=== PATIENT | male | born 1970 | race Caucasian/White ===

== ENCOUNTER 2019-11-16 16:17 | Observation (INO) ==
[2019-11-16] MEDS ORDERED: Aspirin 81 MG TAB.CHEW PO ONE (17:02)
[2019-11-16 17:22] LABS: Basophils # 0.1 K/mcL (0.0-0.2); Basophils % 0.5 %; Eosinophils # 0.2 K/mcL (0.0-0.6); Eosinophils % 1.4 %; Hematocrit 48.2 % (37.5-50.1); Hemoglobin 16.2 g/dL (12.9-16.9); Immature Granulocytes % 0.7 % (0-4); Lymphocytes # 1.8 K/mcL (0.6-4.6); Lymphocytes % 15.9 %; Mean Corpuscular HGB Conc 33.6 g/dL (31.6-35.5); Mean Corpuscular Hemoglobin 33.9 pg (28.0-33.3); Mean Corpuscular Volume 100.8 fL (83.0-100.0); Mean Platelet Volume 10.4 fL (9.4-12.4); Monocytes # 0.6 K/mcL (0.0-1.3); Monocytes % 5.5 %; Neutrophils # 8.4 K/mcL (1.6-8.9); Platelet Count 223 K/mcL (140-400); Red Blood Count 4.78 M/mcL (4.19-5.50); Red Cell Distribution Width 13.2 % (11.5-14.5)
[2019-11-16 17:30] LABS: Prothrombin Time 11.5 Seconds (9.4-12.1)
[2019-11-16 17:39] LABS: BUN/Creatinine Ratio 12 (6-26); Blood Urea Nitrogen 14 mg/dL (6-20); Carbon Dioxide 31 mEq/L (23-29); Chloride 99 mEq/L (98-107); Glucose 86 mg/dL (70-105); Lipase 20 Units/L (11-82); Osmolality,Calculated 286 (280-300); Potassium 3.6 mEq/L (3.5-5.1); Sodium 138 mEq/L (136-145); eGFR For African Americans > 60 (> 60); eGFR For Non-African Americans > 60 (> 60)
[2019-11-16 17:40] LABS: Troponin I < 0.03 ng/mL (< 0.04)
[2019-11-16] MEDS ORDERED: Torsemide 20 MG TABLET PO STA (19:06)
[2019-11-16] MEDS ORDERED: Isovue-370 500 ML BOTTLE IVP ONE (20:09)
[2019-11-16 20:53] LABS: Thyroid Stimulating Hormone 1.452 mcIU/mL (0.340-5.600)
[2019-11-17] MEDS ORDERED: Ondansetron ODT 4 MG TAB.RAPDIS SL PRN (00:19)
[2019-11-17] MEDS ORDERED: Naloxone 0.4 MG/ML INJ IVP PRN (00:19)
[2019-11-17 01:13] LABS: Basophils % 0.4 %; Eosinophils # 0.2 K/mcL (0.0-0.6); Eosinophils % 2.4 %; Hematocrit 47.9 % (37.5-50.1); Hemoglobin 15.8 g/dL (12.9-16.9); Immature Granulocytes % 0.5 % (0-4); Lymphocytes # 1.5 K/mcL (0.6-4.6); Lymphocytes % 15.7 %; Mean Corpuscular Hemoglobin 33.8 pg (28.0-33.3); Mean Corpuscular Volume 102.6 fL (83.0-100.0); Monocytes # 0.5 K/mcL (0.0-1.3); Monocytes % 5.3 %; Neutrophils # 7.2 K/mcL (1.6-8.9); Platelet Count 220 K/mcL (140-400); Red Blood Count 4.67 M/mcL (4.19-5.50); Red Cell Distribution Width 13.2 % (11.5-14.5); Segmented Neutrophils % 75.7 %; White Blood Count 9.5 K/mcL (4.3-11.1)
[2019-11-17 01:27] LABS: BUN/Creatinine Ratio 13 (6-26); Blood Urea Nitrogen 15 mg/dL (6-20); Calcium 8.3 mg/dL (8.6-10.3); Carbon Dioxide 35 mEq/L (23-29); Chloride 100 mEq/L (98-107); Chol/HDL Ratio 3.2 (0-4.9); Glucose 106 mg/dL (70-105); Magnesium 2.2 mg/dL (1.6-2.6); Osmolality,Calculated 291 (280-300); Potassium 3.5 mEq/L (3.5-5.1); Sodium 140 mEq/L (136-145); eGFR For African Americans > 60 (> 60); eGFR For Non-African Americans > 60 (> 60)
[2019-11-17] MEDS: Ipratropium/Albuterol Neb 3 ML IH SCH ×7 (01:35→23:56)
[2019-11-17] MEDS ORDERED: Ipratropium/Albuterol Neb 3 ML IH PRN (05:11)
[2019-11-17] MEDS: *HR* Heparin 5,000 UNIT/ML VIAL SQ SCH ×3 (05:52→20:22)
[2019-11-17] MEDS ORDERED: Perflutren Lipid Microsphere 1.3 ML in 0.9 % Sodium Chloride 8.7 ML IVP ONE (07:05)
[2019-11-17] MEDS: Budesonide/Formoterol 160/4.5 1 PUFF INH IH SCH (07:23)
[2019-11-17] MEDS ORDERED: Nitroglycerin 0.4 MG TAB.SUBL SL PRN (08:10)
[2019-11-17] MEDS: predniSONE 20 MG TABLET PO SCH (09:40)
[2019-11-17] MEDS: Aspirin 81 MG TAB.CHEW PO SCH (09:40)
[2019-11-17] MEDS: Thiamine (B-1) 100 MG TABLET PO SCH (10:50)
[2019-11-17] MEDS ORDERED: Isovue-370 500 ML BOTTLE IVP ONE (14:16)
[2019-11-17 14:31] LABS: ABG Base Excess 6 mEq/L (-2 to 3); ABG HCO3 32 mEq/L (21-27); ABG Oxygen Saturation 94 % (95-98); ABG PCO2 50 mmHg (35-45); ABG PH 7.42 pH Units (7.32-7.45); ABG PO2 73 mmHg (85-104); ABG TCO2 34 mEq/L (20-26)
[2019-11-17 15:09] LABS: Troponin I < 0.03 ng/mL (< 0.04)
[2019-11-17] MEDS: Famotidine 20 MG TABLET PO SCH (20:22)
[2019-11-18] MEDS: Ipratropium/Albuterol Neb 3 ML IH SCH ×5 (04:31→19:46)
[2019-11-18] MEDS: *HR* Heparin 5,000 UNIT/ML VIAL SQ SCH ×3 (05:19→22:07)
[2019-11-18 06:28] LABS: Basophils % 0.4 %; Eosinophils # 0.2 K/mcL (0.0-0.6); Eosinophils % 2.4 %; Hematocrit 46.3 % (37.5-50.1); Hemoglobin 15.6 g/dL (12.9-16.9); Immature Granulocytes % 0.6 % (0-4); Lymphocytes # 1.1 K/mcL (0.6-4.6); Lymphocytes % 13.7 %; Mean Corpuscular HGB Conc 33.7 g/dL (31.6-35.5); Mean Corpuscular Hemoglobin 33.8 pg (28.0-33.3); Mean Corpuscular Volume 100.4 fL (83.0-100.0); Mean Platelet Volume 10.3 fL (9.4-12.4); Monocytes # 0.6 K/mcL (0.0-1.3); Monocytes % 6.7 %; Neutrophils # 6.3 K/mcL (1.6-8.9); Platelet Count 205 K/mcL (140-400); Red Blood Count 4.61 M/mcL (4.19-5.50); Red Cell Distribution Width 13.1 % (11.5-14.5); Segmented Neutrophils % 76.2 %; White Blood Count 8.3 K/mcL (4.3-11.1)
[2019-11-18 06:52] LABS: Alanine Aminotransferase 36 Units/L (7-52); Albumin 3.8 g/dL (3.5-5.7); Albumin/Globulin Ratio 1.6 (1.1-2.2); Alkaline Phosphatase 85 Units/L (34-104); Aspartate Amino Transferase 18 Units/L (13-39); BUN/Creatinine Ratio 15 (6-26); Bilirubin,Total 0.5 mg/dL (0.3-1.0); Blood Urea Nitrogen 16 mg/dL (6-20); Calcium 8.5 mg/dL (8.6-10.3); Carbon Dioxide 33 mEq/L (23-29); Chloride 99 mEq/L (98-107); Globulin 2.4 g/dL (2.4-3.5); Glucose 134 mg/dL (70-105); Osmolality,Calculated 291 (280-300); Potassium 3.9 mEq/L (3.5-5.1); Sodium 139 mEq/L (136-145); Total Protein 6.2 g/dL (6.4-8.9); eGFR For African Americans > 60 (> 60); eGFR For Non-African Americans > 60 (> 60)
[2019-11-18 06:53] LABS: BUN/Creatinine Ratio 15 (6-26); Blood Urea Nitrogen 16 mg/dL (6-20); Calcium 8.5 mg/dL (8.6-10.3); Carbon Dioxide 33 mEq/L (23-29); Chloride 99 mEq/L (98-107); Glucose 135 mg/dL (70-105); Osmolality,Calculated 291 (280-300); Potassium 3.9 mEq/L (3.5-5.1); Sodium 139 mEq/L (136-145); eGFR For African Americans > 60 (> 60); eGFR For Non-African Americans > 60 (> 60)
[2019-11-18] MEDS: Budesonide/Formoterol 160/4.5 1 PUFF INH IH SCH (07:23)
[2019-11-18] MEDS: predniSONE 20 MG TABLET PO SCH (08:25)
[2019-11-18] MEDS: Aspirin 81 MG TAB.CHEW PO SCH (08:25)
[2019-11-18] MEDS: Thiamine (B-1) 100 MG TABLET PO SCH (08:25)
[2019-11-18] MEDS: Torsemide 20 MG TABLET PO SCH (08:25)
[2019-11-18] MEDS: Folic Acid 1 MG TABLET PO SCH (08:25)
[2019-11-18 08:31] LABS: Alanine Aminotransferase 33 Units/L (7-52); Albumin/Globulin Ratio 1.6 (1.1-2.2); Alkaline Phosphatase 90 Units/L (34-104); Aspartate Amino Transferase 24 Units/L (13-39); Bilirubin,Direct 0.1 mg/dL (0.0-0.2); Bilirubin,Indirect 0.7 mg/dL (0.0-1.0); Bilirubin,Total 0.8 mg/dL (0.3-1.0); Globulin 2.5 g/dL (2.4-3.5); Total Protein 6.5 g/dL (6.4-8.9)
[2019-11-18] MEDS: Famotidine 20 MG TABLET PO SCH (22:10)
[2019-11-19] MEDS: Ipratropium/Albuterol Neb 3 ML IH SCH ×4 (00:12→12:51)
[2019-11-19 05:54] LABS: Basophils % 0.3 %; Eosinophils # 0.1 K/mcL (0.0-0.6); Eosinophils % 1.2 %; Hematocrit 44.4 % (37.5-50.1); Hemoglobin 14.5 g/dL (12.9-16.9); Immature Granulocytes % 0.7 % (0-4); Lymphocytes # 1.4 K/mcL (0.6-4.6); Lymphocytes % 15.2 %; Mean Corpuscular HGB Conc 32.7 g/dL (31.6-35.5); Mean Corpuscular Hemoglobin 33.4 pg (28.0-33.3); Mean Corpuscular Volume 102.3 fL (83.0-100.0); Mean Platelet Volume 10.3 fL (9.4-12.4); Monocytes # 0.6 K/mcL (0.0-1.3); Neutrophils # 6.8 K/mcL (1.6-8.9); Platelet Count 196 K/mcL (140-400); Red Blood Count 4.34 M/mcL (4.19-5.50); Red Cell Distribution Width 12.9 % (11.5-14.5); Segmented Neutrophils % 75.6 %
[2019-11-19] MEDS: *HR* Heparin 5,000 UNIT/ML VIAL SQ SCH (06:19)
[2019-11-19 06:21] LABS: BUN/Creatinine Ratio 15 (6-26); Blood Urea Nitrogen 15 mg/dL (6-20); Calcium 8.6 mg/dL (8.6-10.3); Carbon Dioxide 34 mEq/L (23-29); Chloride 101 mEq/L (98-107); Glucose 121 mg/dL (70-105); Osmolality,Calculated 300 (280-300); Potassium 3.5 mEq/L (3.5-5.1); Sodium 144 mEq/L (136-145); eGFR For African Americans > 60 (> 60); eGFR For Non-African Americans > 60 (> 60)
[2019-11-19 07:05] VITALS: BP 123/80
[2019-11-19] MEDS: Budesonide/Formoterol 160/4.5 1 PUFF INH IH SCH (07:45)
[2019-11-19 08:35] LABS: Chol/HDL Ratio 3.4 (0-4.9); Cholesterol 149 mg/dL (< 200); HDL Cholesterol 44 mg/dL (40-59); LDL Cholesterol,Calculated 80 mg/dL (0-99); Triglycerides 126 mg/dL (< 150)
[2019-11-19] MEDS ORDERED: Cyanocobalamin (B-12) 1,000 MCG TABLET PO SCH (09:00)
[2019-11-19] MEDS: Aspirin 81 MG TAB.CHEW PO SCH (09:10)
[2019-11-19] MEDS: Thiamine (B-1) 100 MG TABLET PO SCH (09:10)
[2019-11-19] MEDS: Torsemide 20 MG TABLET PO SCH (09:10)
[2019-11-19] MEDS: Folic Acid 1 MG TABLET PO SCH (09:10)
[2019-11-19] MEDS: predniSONE 20 MG TABLET PO SCH (09:10)
== END 2019-11-19 12:52 | disposition home or self-care (01) ==
LOC: EMEROOARM 16:17 → 3BNU 16:17
PROVIDERS: ADMIT Internal Medicine; ATTEND Internal Medicine